=== PATIENT | female | born 1930 | race Caucasian/White ===

== ENCOUNTER → 2017-03-08 | Outpatient (REF) | payer MEDICARE ==
[2017-03-08 19:23] LABS: ALBUMIN 4.1 GM/DL (3.2-5.2); ALBUMIN/GLOBULIN RATIO 1.11 (1.00-1.93); BILIRUBIN,TOTAL 0.3 MG/DL (0.2-1.0); CALCIUM LEVEL 9.4 MG/DL (8.8-10.2); CREATININE FOR GFR 1.26 MG/DL (0.55-1.02); FREE T4 0.85 NG/DL (0.76-1.46); POTASSIUM SERUM 3.5 MEQ/L (3.5-5.1); TOTAL PROTEIN 7.8 GM/DL (6.4-8.2)
[2017-03-08 20:19] LABS: BASO # 0.1 K/mm3 (0.0-0.2); BASO % 1.3 % (0.0-1.0); EOS # 0.1 K/mm3 (0.0-0.50); EOS % 1.2 % (0.0-3.0); LARGE UNSTAINED CELL # 0.3 K/mm3 (0.0-0.4); LARGE UNSTAINED CELL % 3.5 % (0.0-4.0); LYMPH # 4.5 K/mm3 (1.5-4.5); LYMPH % 48.9 % (24.0-44.0); MEAN CORPUSCULAR HEMOGLOBIN 31.3 pg (27.0-33.0); MEAN CORPUSCULAR HGB CONC 34.1 g/dl (32.0-36.5); MEAN CORPUSCULAR VOLUME 91.6 fl (80.0-96.0); MONO # 0.5 K/mm3 (0.0-0.8); MONO % 5.6 % (0.0-5.0); NEUTROPHILS # 3.6 K/mm3 (1.8-7.7); NEUTROPHILS % 39.6 % (36.0-66.0); PLATELET COUNT, AUTOMATED 252 k/mm3 (150-450); RED CELL DISTRIBUTION WIDTH 12.8 % (11.5-14.5); WHITE BLOOD COUNT 9.1 K/mm3 (4.0-10.0)
== END ==
LOC: M SFHCADAM 14:53
PROVIDERS: ATTEND Physician Assistant Medical
DX: I10 Essential (primary) hypertension (principal); E66.01 Morbid (severe) obesity due to excess calories; R73.01 Impaired fasting glucose

== ENCOUNTER → 2017-07-28 | Outpatient (REF) | payer OTHER ==
[2017-07-28 20:40] LABS: VITAMIN B12 LEVEL 786 PG/ML (247-911)
== END ==
LOC: M LAB REF 18:49
DX: D48.5 Neoplasm of uncertain behavior of skin (principal)
CPT/HCPCS: 82607

== ENCOUNTER 2017-09-04 12:30 | Emergency (ER) | payer OTHER ==
[2017-09-04] MEDS: NAPROXEN 250 MG TAB PO (13:38)
[2017-09-04] MEDS: diazePAM 2 MG TAB PO (13:38)
== END 2017-09-04 14:19 | disposition home or self-care (01) ==
LOC: M ED 12:30
DX: M54.41 Lumbago with sciatica, right side (principal); G89.29 Other chronic pain; I10 Essential (primary) hypertension; Z87.891 Personal history of nicotine dependence; Z79.899 Other long term (current) drug therapy
CPT/HCPCS: 99284

== ENCOUNTER 2017-09-06 11:31 | Emergency (ER) | payer OTHER ==
[2017-09-06] MEDS ORDERED: ONDANSETRON 4 MG ORAL DISINTEGRATING TAB (S0181) As Ordered (12:19)
[2017-09-06] MEDS: KETOROLAC 60 MG/2 ML VIAL (J1885) IM (12:35)
[2017-09-06] MEDS: diazePAM 5 MG TAB PO (12:35)
== END 2017-09-06 14:34 | disposition home or self-care (01) ==
LOC: M ED 11:31
DX: M54.9 Dorsalgia, unspecified (principal); G89.29 Other chronic pain; I10 Essential (primary) hypertension; Z87.891 Personal history of nicotine dependence; Z79.899 Other long term (current) drug therapy; Z79.1 Long term (current) use of non-steroidal anti-inflammatories (NSAID)
CPT/HCPCS: J1885

== ENCOUNTER → 2017-11-10 | Outpatient (CLI) | payer OTHER | LOC: M WHC 09:46 | DX: M81.0 Age-related osteoporosis without current pathological fracture (principal) | CPT/HCPCS: 77080 ==

== ENCOUNTER 2019-01-11 13:16 | Emergency (ER) | payer MEDICARE, OTHER ==
[~2019-01-11] VITALS: Ht 157.5 cm; Wt 77.4 kg
[~2019-01-11 13:16] MED LIST: AMLO5TAB6 PO; DONE5TAB64 PO; HYDR12.55 PO; NAPR-837 PO; SKEL800T97 PO
[2019-01-11 13:43] LABS: ABG BASE EXCESS -3.8 (-2.0-2.0); ABG HCO3 21.5 MEQ/L (22.0-26.0); ABG O2 SATURATION 99.3 % (95.0-99.0); ABG PARTIAL PRESSURE O2 229.6 mmHg (75.0-100.0); ABG STANDARD HCO3 21.3 MEQ/L (22.0-26.0); ABG TOTAL CO2 22.7 MEQ/L (23.0-31.0); ABG pH (ARTERIAL) 7.348 UNITS (7.350-7.450)
[2019-01-11 13:57] LABS: HEMATOCRIT 35.9 % (36.0-47.0); HEMOGLOBIN 11.5 g/dl (12.0-15.5); MEAN CORPUSCULAR HEMOGLOBIN 29.9 pg (27.0-33.0); MEAN CORPUSCULAR VOLUME 93.2 fl (80.0-96.0); PLATELET COUNT, AUTOMATED 211 10^3/uL (150-450); RED BLOOD COUNT 3.85 10^6/uL (4.00-5.40); WHITE BLOOD COUNT 17.4 10^3/uL (4.0-10.0)
[2019-01-11 14:09] LABS: INR 1.19; PROTHROMBIN TIME 14.8 SECONDS (11.8-14.0)
[2019-01-11 14:10] LABS: PARTIAL THROMBOPLASTIN TIME 24.8 SECONDS (25.0-38.4)
--- NOTE | 2019-01-11 14:13 | REP ---
CT of the brain without IV contrast: Comparison is 05/29/2017. There is a new focal density measuring approximately 4 mm posteromedially in the right occipital lobe spanning images 16 - 18 as an interval change. This could represent dystrophic calcification or petechial hemorrhage. Consider follow-up MRI for further evaluation. No other hemorrhage is identified. There is no edema, mass effect or midline shift. There is mild diffuse atrophy that has slightly progressed. There is lucency within the subcortical white matter compatible with chronic microvascular ischemia, similar to the prior study. Impression: New focal density posterior medially in the right occipital lobe, calcification versus petechial hemorrhage. Consider MRI follow up for further evaluation. Mild diffuse atrophy that has slightly progressed. Chronic microvascular ischemia. Electronically Signed by Charly Stewart MD 01/11/2019 02:05 P
[2019-01-11 14:17] LABS: EOSINOPHILS 2 % (0-5); LYMPHOCYTES 34 % (16-52); MONOCYTES 4 % (0-8); NEUTROPHILS 60 % (35-75); PLATELET ESTIMATE NORMAL (NORMAL)
[2019-01-11 14:36] LABS: BLOOD UREA NITROGEN 31 MG/DL (7-18); CALCIUM LEVEL 8.8 MG/DL (8.8-10.2); CARBON DIOXIDE LEVEL 24 MEQ/L (21-32); CHLORIDE LEVEL 109 MEQ/L (98-107); CK-MB VALUE MASS 2.2 NG/ML (<3.6); CPK CREATINE PHOSPHOKINASE 145 U/L (26-192); CREATININE FOR GFR 1.15 MG/DL (0.55-1.30); GLOMERULAR FILTRATION RATE 47.6 (>32); GLUCOSE, FASTING 164 MG/DL (70-100); MAGNESIUM LEVEL 2.2 MG/DL (1.8-2.4); MB/CK RELATIVE INDEX 1.52 (< OR =4); POTASSIUM SERUM 4.2 MEQ/L (3.5-5.1); SODIUM LEVEL 142 MEQ/L (136-145); TROPONIN I < 0.02 NG/ML (< 0.10)
--- NOTE | 2019-01-11 15:01 | REP ---
CHEST, SINGLE VIEW: There is no evidence of acute infiltrate. No pleural effusion is seen. The heart is normal in size. The mediastinal silhouette is unremarkable. The visualized osseous structures are intact. There is calcification of the thoracic aorta. IMPRESSION: No acute pulmonary disease. Electronically Signed by Charly Guzmán MD 01/11/2019 05:17 P
--- NOTE | 2019-01-11 15:11 | REP ---
PELVIS AND LEFT HIP: AP view of the pelvis and AP and frogleg views of the left hip are performed. There is no evidence of acute fracture or dislocation. No intrinsic osseous pathology is seen. Impression: No fracture or dislocation. Electronically Signed by Charly Guzmán MD 01/11/2019 05:46 P
[2019-01-11] MEDS ORDERED: fentaNYL 100 MCG/2 ML INJECTION (J3010) IV ONE (15:45)
[2019-01-11 16:18] VITALS: BP 78/45
[2019-01-11] MEDS ORDERED: ONDANSETRON 4MG/2ML VIAL (J2405) As Ordered ONE (16:20)
[2019-01-11] MEDS ORDERED: ONDANSETRON 4MG/2ML VIAL (J2405) IV ONE (16:30)
[2019-01-11] MEDS ORDERED: NS 1,000 ML IV ONE (16:30)
--- NOTE | 2019-01-11 20:56 | ECGEPIP ---
[facility] - ED Test Date: 2019-01-11 Pat Name: JERZY TAFOYA Department: Room: - Gender: Female Director Of Advertising Sales: : 1930 Requested By: Cam Schroeder Order Number: [id number] Reading MD: Cam Fu Measurements Intervals [place] Rate: 69 P: 60 [place]: 148 QRS: 79 QRSD: 158 T: 89 QT: 469 QTc: 503 Interpretive Statements SINUS RHYTHM LEFT BUNDLE BRANCH BLOCK NO PRIORS FOR COMPARISON Electronically Signed on 01-11-2019 20:55:42 EDT by Cam Fu
== END 2019-01-11 16:30 | disposition short-term general hospital (02) ==
LOC: M ED 13:16
DX: I46.9 Cardiac arrest, cause unspecified (principal); S06.369A Traumatic hemorrhage of cerebrum, unspecified, with loss of consciousness of unspecified duration, initial encounter; I44.7 Left bundle-branch block, unspecified; X58.XXXA Exposure to other specified factors, initial encounter; Y92.9 Unspecified place or not applicable; Y93.9 Activity, unspecified; Y99.9 Unspecified external cause status; I10 Essential (primary) hypertension; E78.5 Hyperlipidemia, unspecified; I67.82 Cerebral ischemia; Z79.899 Other long term (current) drug therapy
CPT/HCPCS: 36415; 36600; 70450; 71045; 73502; 80048; 82550; 82553; 82803; 83605; 83735; 84443; 84484; 85025; 85610; 85730; 93005; 93041; 96374; 96375; 99285; J3010

== ENCOUNTER → 2019-03-26 | Outpatient (REF) | payer MEDICARE ==
[~2019-03-26] MED LIST changes: +ACET1TAB55 PO; +VITA200015 PO
== END ==
LOC: M LAB REF 10:11
PROVIDERS: ATTEND Physician Assistant
DX: N39.0 Urinary tract infection, site not specified (principal)

== ENCOUNTER → 2019-04-06 | Outpatient (REF) | payer MEDICARE ==
[~2019-04-06] MED LIST changes: -ACET1TAB55 PO; -VITA200015 PO
[2019-04-06 15:28] LABS: BASO # 0.1 10^3/uL (0.0-0.2); EOS # 0.2 10^3/uL (0.0-0.5); HEMATOCRIT 43.1 % (36.0-47.0); HEMOGLOBIN 13.9 g/dl (12.0-15.5); LYMPH # 2.8 10^3/uL (1.5-5.0); LYMPH % 31.8 % (24.0-44.0); MEAN CORPUSCULAR HEMOGLOBIN 29.6 pg (27.0-33.0); MEAN CORPUSCULAR HGB CONC 32.3 g/dl (32.0-36.5); MEAN CORPUSCULAR VOLUME 91.9 fl (80.0-96.0); MONO # 1.1 10^3/uL (0.0-0.8); MONO % 12.3 % (0.0-5.0); NEUTROPHILS # 4.6 10^3/uL (1.5-8.5); NEUTROPHILS % 52.6 % (36.0-66.0); PLATELET COUNT, AUTOMATED 282 10^3/uL (150-450); RED BLOOD COUNT 4.69 10^6/uL (4.00-5.40); WHITE BLOOD COUNT 8.7 10^3/uL (4.0-10.0)
[2019-04-06 16:05] LABS: ALBUMIN 3.7 GM/DL (3.2-5.2); ALT/SGPT 16 U/L (12-78); BILIRUBIN,TOTAL 0.3 MG/DL (0.2-1.0); BLOOD UREA NITROGEN 16 MG/DL (7-18); CARBON DIOXIDE LEVEL 29 MEQ/L (21-32); CHLORIDE LEVEL 106 MEQ/L (98-107); CREATININE FOR GFR 0.93 MG/DL (0.55-1.30); GLOMERULAR FILTRATION RATE > 60.0 (>32); GLUCOSE, FASTING 96 MG/DL (70-100); POTASSIUM SERUM 3.6 MEQ/L (3.5-5.1); SODIUM LEVEL 141 MEQ/L (136-145); TOTAL PROTEIN 7.8 GM/DL (6.4-8.2)
[2019-04-06 16:10] LABS: VITAMIN B12 LEVEL 427 PG/ML (247-911)
== END ==
LOC: M SFHCPLAZ 13:58
PROVIDERS: ATTEND Family Medicine
DX: R41.0 Disorientation, unspecified (principal)

== ENCOUNTER → 2019-04-13 | Outpatient (REF) | payer MEDICARE ==
[2019-04-13 11:43] LABS: APPEARANCE, URINE CLEAR (CLEAR); BACTERIA, URINE AUTO 1+ (NEGATIVE); BILIRUBIN, URINE AUTO NEGATIVE (NEGATIVE); BLOOD, URINE BLOOD NEGATIVE (NEGATIVE); COLOR, URINE YELLOW (YELLOW); GLUCOSE, URINE (UA) AUTO NEGATIVE (NEGATIVE); KETONE, URINE AUTO NEGATIVE (NEGATIVE); LEUKOCYTE ESTERASE, URINE AUTO NEGATIVE (NEGATIVE); MUCUS, URINE SMALL (NEGATIVE); NITRITE, URINE AUTO NEGATIVE (NEGATIVE); PROTEIN, URINE AUTO NEGATIVE (NEGATIVE); RBC, URINE AUTO 1 /HPF (0-3); SPECIFIC GRAVITY URINE AUTO 1.017 (1.002-1.035); SQUAMOUS EPITHELIAL CELL UR AU 0 /HPF (0-6); UROBILINOGEN, URINE AUTO 0.2 mg/dL (0.0-2.0); WBC, URINE AUTO 1 /HPF (0-3)
== END ==
LOC: M SFHCPLAZ 11:24
PROVIDERS: ATTEND Family Medicine
DX: R41.0 Disorientation, unspecified (principal)

== ENCOUNTER 2019-04-27 17:55 | Emergency (ER) | payer MEDICARE ==
[~2019-04-27] VITALS: Ht 157.5 cm; Wt 72.7 kg
[2019-04-27] MEDS ORDERED: VITA200015 PO (18:09)
[2019-04-27] MEDS ORDERED: ACET1TAB55 PO (18:09)
[2019-04-27] MEDS ORDERED: ACETAMINOPHEN 500 MG TAB PO ONE (18:45)
[2019-04-27 19:09] LABS: HEMATOCRIT 44.2 % (36.0-47.0); HEMOGLOBIN 13.5 g/dl (12.0-15.5); MEAN CORPUSCULAR HEMOGLOBIN 28.1 pg (27.0-33.0); MEAN CORPUSCULAR HGB CONC 30.5 g/dl (32.0-36.5); MEAN CORPUSCULAR VOLUME 91.9 fl (80.0-96.0); PLATELET COUNT, AUTOMATED 231 10^3/uL (150-450); RED BLOOD COUNT 4.81 10^6/uL (4.00-5.40); WHITE BLOOD COUNT 7.2 10^3/uL (4.0-10.0)
--- NOTE | 2019-04-27 19:47 | REPVR ---
PROCEDURE INFORMATION: Exam: CT Lumbar Spine Without Contrast Exam date and time: 04/27/2019 7:13 PM Clinical history: 89 years old, female; Low back pain TECHNIQUE: Imaging protocol: Computed tomography images of the lumbar spine without contrast. Radiation optimization: All CT scans at this facility use at least one of these dose optimization techniques: automated exposure control; mA and/or kV adjustment per patient size (includes targeted exams where dose is matched to clinical indication); or iterative reconstruction. COMPARISON: CT Spine, lumbar w/o contrast 09/06/2017 12:34 PM FINDINGS: Vertebrae: Mild dextroconvex curvature. Moderate to severe chronic compression fracture involving L3, stable. No acute lumbar spine fracture. Moderate prevertebral osteophytosis. There are facet joint degenerative changes. Chronic left L3 transverse process fracture. Discs/Spinal canal/Neural foramina: Central canal stenosis greatest at L3-L4, moderate. Gallbladder and bile ducts: Previous cholecystectomy. Vasculature: Vascular calcification. Ectasia of the infrarenal abdominal aorta measuring 2.6 cm. Soft tissues: Unremarkable. IMPRESSION: 1. No acute osseous abnormality. 2. Egvzubfw-wd-rodbns chronic compression fracture involving L3, stable. Electronically signed by: Mark Anthony Ventura On 04/27/2019 19:47:19 PM
[2019-04-27] MEDS ORDERED: KETOROLAC TROMETHAMINE 10 MG TAB PO ONE (20:00)
[2019-04-27 20:48] VITALS: BP 149/75
== END 2019-04-27 20:56 | disposition home or self-care (01) ==
LOC: EDBD 17:55 → M ED 17:55
DX: S32.000A Wedge compression fracture of unspecified lumbar vertebra, initial encounter for closed fracture (principal); X58.XXXA Exposure to other specified factors, initial encounter; Y92.9 Unspecified place or not applicable; Y93.9 Activity, unspecified; Y99.9 Unspecified external cause status; I10 Essential (primary) hypertension; M19.90 Unspecified osteoarthritis, unspecified site; M54.5 Low back pain; K58.9 Irritable bowel syndrome, unspecified; Z87.891 Personal history of nicotine dependence; Z79.899 Other long term (current) drug therapy

== ENCOUNTER 2019-05-16 19:00 | Inpatient (IN) | payer MEDICARE ==
[~2019-05-16] VITALS: Ht 157.5 cm; Wt 70.9 kg
[~2019-05-16 19:00] MED LIST changes: +ACET1TAB55 PO; +VITA200015 PO
[2019-05-16] MEDS ORDERED: PROPOFOL 200 MG/20 ML VIAL As Ordered ONE (19:04)
[2019-05-16] MEDS ORDERED: PROPOFOL 1,000 MG/100 ML VIAL As Ordered ONE (19:05)
[2019-05-16] MEDS ORDERED: NS 1,000 ML IV ONE (19:15)
[2019-05-16] MEDS ORDERED: ETOMIDATE INJ 20MG/10ML VIAL IV STA (19:17)
[2019-05-16] MEDS ORDERED: SUCCINYLCHOLINE INJ 200 MG/10 ML VIAL (J0330) IV STA (19:17)
[2019-05-16 19:21] LABS: HEMOGLOBIN 12.6 g/dl (12.0-15.5); MEAN CORPUSCULAR HEMOGLOBIN 28.6 pg (27.0-33.0); MEAN CORPUSCULAR HGB CONC 31.5 g/dl (32.0-36.5); MEAN CORPUSCULAR VOLUME 90.7 fl (80.0-96.0); PLATELET COUNT, AUTOMATED 245 10^3/uL (150-450); RED BLOOD COUNT 4.41 10^6/uL (4.00-5.40)
[2019-05-16 19:30] LABS: WHITE BLOOD COUNT 14.3 10^3/uL (4.0-10.0)
[2019-05-16] MEDS ORDERED: PIPERACILLIN/TAZOBACTAM SOD 3.375 GM in D5W MINI-BAG PLUS 50 ML IV ONE (19:30)
--- NOTE | 2019-05-16 19:39 | REP ---
Nickel: Chest pain. Comparison: 01/11/2019. Findings: Endotracheal tube approximately 1.7 cm above the abdullahi. Mediastinum and cardiac silhouette are within normal limits and stable. Lung lioa demonstrate diffuse chronic interstitial changes. Superimposed interstitial edema cannot be excluded. No focal consolidation. No effusion. No pneumothorax. Skeletal structures demonstrate osteopenia and degenerative changes. Impression: 1. Endotracheal tube approximately 1.7 cm above the abdullahi. 2. Cannot exclude mild interstitial edema. No focal consolidation or effusion. Electronically Signed by Herminio Gomez MD 05/16/2019 07:30 P
[2019-05-16 19:54] LABS: ATYPICAL LYMPH 13 % (0-5); EOSINOPHILS 1 % (0-3); LYMPHOCYTES 59 % (16-44); MONOCYTES 2 % (0-5); NEUTROPHILS 25 % (28-66)
[2019-05-16 19:55] LABS: PLATELET ESTIMATE NORMAL (NORMAL)
[2019-05-16 19:56] LABS: BILIRUBIN, URINE MANUAL NEGATIVE (NEGATIVE); GLUCOSE, URINE (UA) MANUAL NEGATIVE (NEGATIVE); KETONE, URINE MANUAL NEGATIVE (NEGATIVE); UROBILINOGEN, URINE MANUAL NORMAL (NORMAL)
--- NOTE | 2019-05-16 19:56 | REPVR ---
PROCEDURE INFORMATION: Exam: CT Head Without Contrast Exam date and time: 05/16/2019 7:43 PM Age: 89 years old Clinical history: Altered mental status/memory loss and coma or unconsciousness TECHNIQUE: Imaging protocol: Computed tomography of the head without contrast. Radiation optimization: All CT scans at this facility use at least one of these dose optimization techniques: automated exposure control; mA and/or kV adjustment per patient size (includes targeted exams where dose is matched to clinical indication); or iterative reconstruction. Other technique: STROKE PROTOCOL was implemented. COMPARISON: CT Head without contrast 01/11/2019 1:40 PM FINDINGS: Brain: There is volume loss. There is white matter lucency indicating extensive chronic microvascular disease. There are multiple cerebral hemorrhages. The largest is in the left temporo-parietal region and measures up to 6 cm. There are multiple additional temporal and parietal smaller hemorrhages on the left. There is surrounding edema. There is a small right medial parietal parenchymal hemorrhage. There is a small left frontotemporal subdural hematoma measuring 3 mm in thickness. Midline shift: There is 10 mm of midline shift. There is herniation of the left uncus. Ventricles: There is intraventricular hemorrhage within the right lateral ventricle. There is compression of the left lateral ventricle and trapping of the right lateral ventricle. Bones/joints: No fracture. Sinuses: Visualized sinuses are unremarkable. No fluid levels. Mastoid air cells: Visualized mastoid air cells are well aerated. Soft tissues: Unremarkable IMPRESSION: 1. Extensive left cerebral parenchymal hemorrhages the largest measuring 6 cm with surrounding edema. There is subfalcine and left uncal herniation with 10 mm of midline shift. 2. There is a small left frontotemporal subdural hematoma. 3. There is a single small right cerebral hemorrhage. ASSESSMENT: ASPECTS ([place] Stroke Program Early CT Score) 10 Electronically signed by: Mina Huitron On 05/16/2019 19:56:29 PM
[2019-05-16 19:58] LABS: ALBUMIN 3.4 GM/DL (3.2-5.2); ALT/SGPT 17 U/L (12-78); BILIRUBIN,DIRECT < 0.1 MG/DL (0.0-0.2); BILIRUBIN,TOTAL 0.4 MG/DL (0.2-1.0); BLOOD UREA NITROGEN 14 MG/DL (7-18); CALCIUM LEVEL 9.1 MG/DL (8.8-10.2); CARBON DIOXIDE LEVEL 25 MEQ/L (21-32); CHLORIDE LEVEL 108 MEQ/L (98-107); CK-MB VALUE MASS 1.8 NG/ML (<3.6); CPK CREATINE PHOSPHOKINASE 80 U/L (26-192); CREATININE FOR GFR 0.78 MG/DL (0.55-1.30); FREE T4 1.09 NG/DL (0.76-1.46); GLOMERULAR FILTRATION RATE > 60.0 (>32); GLUCOSE, FASTING 150 MG/DL (70-100); MB/CK RELATIVE INDEX 2.25 (< OR =4); NT-PRO BNP 1374 PG/ML (<450); POTASSIUM SERUM 3.1 MEQ/L (3.5-5.1); SODIUM LEVEL 142 MEQ/L (136-145); THYROID STIMULATING HORMONE 0.909 uIU/ML (0.358-3.740); TOTAL PROTEIN 6.9 GM/DL (6.4-8.2); TROPONIN I < 0.02 NG/ML (< 0.10)
[2019-05-16] MEDS ORDERED: PROPOFOL 1,000 MG in IV 1 EA IV SCH (20:00)
[2019-05-16] MEDS ORDERED: MORPHINE 10 MG/ML 1ML VIAL (J2270) IV ONE (20:15)
[2019-05-16 20:24] LABS: BACTERIA, URINE NONE SEEN; HYALINE CAST, URINE NONE SEEN /lpf (0-1); RBC, URINE NONE SEEN /hpf (0-3); SQUAMOUS EPITHELIAL CELL URINE NONE SEEN /hpf (SMALL AMT)
[2019-05-16] MEDS ORDERED: MORPHINE SULF IN 0.9% NACL 100 MG in IV 1 EA IV SCH ×2 (20:43)
[2019-05-16] MEDS ORDERED: FLEET ENEMA PR PRN (22:15)
[2019-05-16] MEDS ORDERED: SCOPOLAMINE 1MG TRANSDERMAL PATCH TOP PRN (22:15)
[2019-05-16] MEDS ORDERED: ACETAMINOPHEN 650 MG SUPP PR PRN (22:15)
[2019-05-16] MEDS ORDERED: BISACODYL 10 MG SUPP PR PRN (22:15)
--- NOTE | 2019-05-17 00:05 | ECGEPIP ---
[facility] - ED Test Date: 2019-05-16 Pat Name: JERZY TAFOYA Department: Room: - Gender: Female Chemical Research Worker: monico : 1930 Requested By: JAMAL Palacios Order Number: [id number] Reading MD: Cam Fu Measurements Intervals [place] Rate: 61 P: 34 [place]: 139 QRS: 63 QRSD: 163 T: 76 QT: 455 QTc: 462 Interpretive Statements SINUS RHYTHM WITH OCCASIONAL SUPRAVENTRICULAR PREMATURE COMPLEXES LEFT BUNDLE BRANCH BLOCK LVH WITH STRAIN PATTERN SIMILAR TO 01/11/19 Electronically Signed on 05-17-2019 0:05:00 EST by Cam Fu
[2019-05-17 00:15] VITALS: BP 151/67
[2019-05-17] MEDS: ONDANSETRON 4MG/2ML VIAL (J2405) IV PRN ×2 (00:56→18:10)
[2019-05-17] MEDS ORDERED: MORPHINE SULF IN 0.9% NACL 100 MG in IV 1 EA IV SCH ×2 (01:00)
[2019-05-17] MEDS: LORazepam 2 MG/ML VIAL (J2060) IV PRN ×4 (01:43→18:10)
--- NOTE | 2019-05-17 01:47 | HPEPDOC ---
General Date of Admission 05/16/19 Date of Service: May 16, 2019 Primary Care Physician: KRYSTLE TABARES PA-C Attending Physician: SUKHDEEP ANDREWS DO Chief Complaint The patient is a 89-year-old female admitted with a reason for visit of Unresponsive. History of Present Illness This is a 89 yo F with hx of intraparenchymal bleed in 12/2018 s/p syncope, cause unclear-from cardiac arrest requiring CPR vs hypotension. Information is obtained from chart and her 2 brothers in the room. She was brought in via EMS after noted to be minimally responsive at home. Brothers state she had been complaining of headache leading up to today, and blurred vision starting last night. No other recent changes in meds or signs or symptoms. Brother checked in on her earlier today and found her in bed confused and nonverbal. At that point, was able to raise her arms and hold the brother, but unable to answer. In ambulance, she was bagged and then intubated upon arrival. CT imaging noted significant hemorrhage with uncal herniation. Results were discussed with her family, including over the phone by the ER with pt's sister, who is pt's HCP. They relayed that Ms. 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 ANISHA signed, was extubated and being admitted for supportive care. Home Medications Scheduled Cholecalciferol (Vitamin D3) (Vitamin D3) 2,000 Unit Tablet, 2,000 UNITS PO DAILY, (Reported) Scheduled PRN Acetaminophen (Acetaminophen) 325 Mg Tablet, 650 MG PO Q6HP PRN for PAIN, (Reported) Allergies Coded Allergies: No Known Allergies (Verified , 02/19/09) Past Medical History Medical History OA HTN-meds stopped due to hypotension chronic venous insufficiency syncope 12/2018 with intraparenchymal hemorrage and CPR IBS recurrent UTI compression fractures dementia Surgical History vaginal hysterectomy ankle cyst repair ccy knee arthroscopy rt breast biopsy Family History dad passed at 76 from CVA mom passed at 89-colon cancer, CHF Social History lived alone at home, no illicit substances A-FIB/CHADSVASC A-FIB History Current/History of A-Fib/PAF?: No Current PO Anticoag Therapy: No Review of Systems Other systems unable to obtain due to pt sedated, MOTORCOACH OPERATOR. Physical Examination Other physical findings MOTORCOACH OPERATOR status General exam: NAD, resting comfortably, sedated, pale ill-appearing HEENT: normocephalic without visible lesions Respiratory: not intubated Skin: pale without visible rash or lesion Msk: flaccid on sedation Neuro: sedated, nonverbal Vital Signs Vital Signs Date Time Temp Pulse Resp B/P (MAP) Pulse Ox O2 Delivery O2 Flow Rate FiO2 05/16/19 22:01 49 16 138/63 (88) 81 Room Air 05/16/19 19:34 60 05/16/19 19:05 97.0 Laboratory Data Labs 24H Laboratory Tests 2 05/16/19 19:06: Lymphocytes # (Auto) , Nucleated Red Blood Cells % (auto) 0.0, Neutrophils 25L, Lymphocytes (Manual) 59H, Monocytes (Manual) 2, Eosinophils (Manual) 1, Atypical Lymphocytes 13H, Platelet Estimate NORMAL, Anion Gap 9, Glomerular Filtration Rate > 60.0, Calcium Level 9.1, Total Bilirubin 0.4, Direct Bilirubin < 0.1, Aspartate Amino Transf (AST/SGOT) 14, Alanine Aminotransferase (ALT/SGPT) 17, Alkaline Phosphatase 77, Total Creatine Kinase 80, Creatine Kinase MB 1.8, Creatine Kinase MB Relative Index 2.25, Troponin I < 0.02, BK-[place]-P-Type Natriuretic Peptide 1374H, Total Protein 6.9, Albumin 3.4, Albumin/Globulin Ratio 0.97L, Thyroid Stimulating Hormone (TSH) 0.909, Free Thyroxine 1.09 05/16/19 19:15: Lactic Acid Level 2.0 05/16/19 19:22: Urine Color (ADRIANNA) YELLOW, Urine Appearance (ADRIANNA) CLEAR, Urine pH (ADRIANNA) 6.0, Urine Specific [place] (ADRIANNA) 1.015, Urine Protein TRACEH, Bedside Urine Glucose (UA) NEGATIVE, Bedside Urine Ketones (LAB) NEGATIVE, Bedside Urine Blood TRACEH, Bedside Urine Nitrite (LAB) NEGATIVE, Bedside Urine Bilirubin (LAB) NEGATIVE, Bedside Urine Urobilinogen (LAB) NORMAL, Bedside Urine Leukocyte Esterase (L NEGATIVE, Urine Sediment Examination PERFORMED, Urine RBC NONE SEEN, Urine WBC NONE SEEN, Urine Squamous Epithelial Cells NONE SEEN, Urine Bacteria NONE SEEN, Urine Hyaline Casts NONE SEEN 05/16/19 19:39: POC pH (Misc Panel) 7.381, POC Base Excess (Misc Panel) 0.0, POC Saturated Percent O2 (Misc) 93L, POC pO2 (Misc Panel) 67.0L, POC pCO2 (Misc Panel) 41.9, POC HCO3 (Misc Panel) 24.8, POC Total CO2 (Misc Panel) 26.0 CBC/BMP Laboratory Tests 05/16/19 19:06 Microbiology Microbiology 05/16/19 Blood Culture, Received Pending 05/16/19 Blood Culture, Received Pending Assessment/Plan Severe intracerebral hemorrhage and uncal herniation-results discussed with family, including patient's HCP (sister) by ER via phone. Her 2 brothers and 1 sister relayed that she would not want to be intubated or have CPR or any further interventions. Was extubated therafter. MOLST in chart updated by ER. Patient is DNR/DNI and comfort measures only, will admit with hospice consult in place. All questions answered with family. Plan / VTE VTE Prophylaxis Ordered?: No VTE Exclusion Pharmacological: Patient/Family Refusal GME ATTESTATION GME ATTESTATION My faculty preceptor for this patient encounter was physically present during the encounter and was fully available. All aspects of the patient interview, examination, medical decision making process, and medical care plan development were reviewed and approved by the faculty preceptor. The faculty preceptor is aware and concurs with the plan as stated in the body of this note and will attest to such by his/her cosignature. ATTENDING NOTE I saw the pt and agree with resident's findings and plan of treatment KYREE HAQUE DO May 16, 2019 22:26 SUKHDEEP ANDREWS DO May 17, 2019 06:31
[2019-05-17] MEDS: ATROPINE SULFATE 1% OP SOLN 2 ML BTL SL PRN ×3 (04:28→16:11)
[2019-05-17] MEDS ORDERED: SUCCINYLCHOLINE 100 MG/5 ML SYRINGE (J0330) ONE (08:57)
[2019-05-17] MEDS ORDERED: ETOMIDATE INJ 20MG/10ML VIAL ONE (08:57)
--- NOTE | 2019-05-17 10:54 | IPNPDOC ---
Subjective Date Seen The patient was seen on 05/17/19. Subjective Chief Complaint/HPI Pt unarousable. Son at bedside, asleep. General: Reports: ROS Unobtainable Objective Physical Examination General Exam: Positive: No Acute Distress; Negative: Alert Chest Exam: Positive: Rhonchi; Negative: Clear to auscultation, Normal air movement Heart Exam: Positive: Rate Normal Psych Exam: Negative: Mental status NL Assessment /Plan Problems (1) Comfort measures only status Status: Acute Problem Specific Plan: Monitor Clinically Problem Text: Morphine, scopalamine, hycosamine, ativan available for use for comfort. (2) Hemorrhagic cerebrovascular accident (CVA) Status: Acute Plan/VTE VTE Prophylaxis Ordered?: No (CARE MANAGEMENT SPECIALIST) VTE Exclusion Pharmacological: Patient/Family Refusal Plan Family Medicine Attending Note: I saw and examined Ms. Ahuja, discussed with [place]. Agree with her note as documented. There was some family at the bedside when I visited today. They report she is comfortable. They're concerned because she has a reported intolerance to opioids including morphine. She tends to vomit if she gets it. Right now she is comfortable with just when necessary Ativan. We'll continue with that for now. May try co-administering a lower dose of morphine with ondansetron if this is needed down the road. (insole filler) VS, I&O, 24H, [place] Vital Signs/I&O Vital Signs Date Time Temp Pulse Resp B/P (MAP) Pulse Ox O2 Delivery O2 Flow Rate FiO2 05/17/19 00:15 56 18 151/67 (95) 82 Room Air 05/16/19 19:34 60 05/16/19 19:05 97.0 I&O- Last 24 Hours up to 6 AM 05/17/19 06:00 Intake Total 0 ml Output Total 675 ml Balance -675 ml Laboratory Data 24H LABS Laboratory Tests 2 05/16/19 19:06: Lymphocytes # (Auto) , Nucleated Red Blood Cells % (auto) 0.0, Neutrophils 25L, Lymphocytes (Manual) 59H, Monocytes (Manual) 2, Eosinophils (Manual) 1, Atypical Lymphocytes 13H, Platelet Estimate NORMAL, Anion Gap 9, Glomerular Filtration Rate > 60.0, Calcium Level 9.1, Total Bilirubin 0.4, Direct Bilirubin < 0.1, Aspartate Amino Transf (AST/SGOT) 14, Alanine Aminotransferase (ALT/SGPT) 17, Alkaline Phosphatase 77, Total Creatine Kinase 80, Creatine Kinase MB 1.8, Creatine Kinase MB Relative Index 2.25, Troponin I < 0.02, PU-Ahq-T-Type Natriuretic Peptide 1374H, Total Protein 6.9, Albumin 3.4, Albumin/Globulin Ratio 0.97L, Thyroid Stimulating Hormone (TSH) 0.909, Free Thyroxine 1.09 05/16/19 19:15: Lactic Acid Level 2.0 05/16/19 19:22: Urine Color (ADRIANNA) YELLOW, Urine Appearance (ADRIANNA) CLEAR, Urine pH (ADRIANNA) 6.0, Urine Specific [place] (ADRIANNA) 1.015, Urine Protein TRACEH, Bedside Urine Glucose (UA) NEGATIVE, Bedside Urine Ketones (LAB) NEGATIVE, Bedside Urine Blood TRACEH, Bedside Urine Nitrite (LAB) NEGATIVE, Bedside Urine Bilirubin (LAB) NEGATIVE, Bedside Urine Urobilinogen (LAB) NORMAL, Bedside Urine Leukocyte Esterase (L NEGATIVE, Urine Sediment Examination PERFORMED, Urine RBC NONE SEEN, Urine WBC NONE SEEN, Urine Squamous Epithelial Cells NONE SEEN, Urine Bacteria NONE SEEN, Urine Hyaline Casts NONE SEEN 05/16/19 19:39: POC pH (Misc Panel) 7.381, POC Base Excess (Misc Panel) 0.0, POC Saturated Percent O2 (Misc) 93L, POC pO2 (Misc Panel) 67.0L, POC pCO2 (Misc Panel) 41.9, POC HCO3 (Misc Panel) 24.8, POC Total CO2 (Misc Panel) 26.0 CBC/BMP Laboratory Tests 05/16/19 19:06 Microbiology Microbiology 05/16/19 Blood Culture, Received Pending 05/16/19 Blood Culture, Received Pending KRYSTLE TABARES PA-C May 17, 2019 10:54 am Tree Lemon MD May 17, 2019 7:46 pm
[2019-05-17] MEDS: MORPHINE 2 MG/ML 1ML VIAL (J2270) IV PRN ×2 (18:11→20:43)
--- NOTE | 2019-05-18 17:39 | DS.PDOC ---
Discharge Summary General Date of Admission May 16, 2019 at 22:59 Date of Discharge 05/17/19 Primary Care Physician: Boaz Sams MD Attending Physician: Tree Lemon MD Discharge Summary ADMITTING DIAGNOSES: 1. Severe intracerebral hemorrhage with uncal herniation. DISCHARGE DIAGNOSIS/CAUSE OF : 1. Severe intracerebral hemorrhage with uncal herniation. PROCEDURES PERFORMED DURING STAY: None. ADMISSION HISTORY: Ms. Ahuja was brought in via EMS after noted to be minimally responsive at home. Please see the admission history and physical for the remaining details. HOSPITAL COURSE: Ms. Ahuja was brought in for evaluation and it was quickly determined that she had had any large intracerebral hemorrhage with uncal herniation. This was discussed frankly with her family and they decided to have her admitted on palliative care/comfort measures only. She remained comfortable through the next day and ultimately did . DISCHARGE CONDITION: Morbid. LABORATORY DATA: Please see below. IMAGING: Chest x-ray, head CT. Vital Signs/I&Os Vital Signs Date Time Temp Pulse Resp B/P (MAP) Pulse Ox O2 Delivery O2 Flow Rate FiO2 05/17/19 20:43 40 Room Air 05/17/19 00:15 56 151/67 (95) 82 05/16/19 19:34 60 05/16/19 19:05 97.0 I&O- Last 24 Hours up to 6 AM 05/18/19 06:00 Intake Total 0 ml Output Total 0 ml Balance 0 ml Microbiology Microbiology 05/16/19 Blood Culture - Preliminary, Resulted No growth after 24 hours . All specim... 05/16/19 Blood Culture - Preliminary, Resulted No growth after 24 hours . All specim... Discharge Medications Scheduled Cholecalciferol (Vitamin D3) (Vitamin D3) 2,000 Unit Tablet, 2,000 UNITS PO DAILY, (Reported) Scheduled PRN Acetaminophen (Acetaminophen) 325 Mg Tablet, 650 MG PO Q6HP PRN for PAIN, (Reported) Allergies Coded Allergies: No Known Allergies (Verified , 02/19/09) Tree Lemon MD May 18, 2019 17:39
== END 2019-05-17 23:51 | disposition expired | DRG 64 ==
LOC: M ED 19:00 → M ED INP 22:59 → M MSPAV 05-17 00:27
PROVIDERS: ADMIT Internal Medicine; ATTEND Family Medicine
PROC: 5A1935Z Respiratory Ventilation, Less than 24 Consecutive Hours (ICD-10-PCS; principal; 2019-05-16)
DX: I61.9 Nontraumatic intracerebral hemorrhage, unspecified (principal); G93.5 Compression of brain; J96.90 Respiratory failure, unspecified, unspecified whether with hypoxia or hypercapnia; Z66 Do not resuscitate; Z51.5 Encounter for palliative care; R40.20 Unspecified coma; M19.90 Unspecified osteoarthritis, unspecified site; I10 Essential (primary) hypertension; F03.90 Unspecified dementia, unspecified severity, without behavioral disturbance, psychotic disturbance, mood disturbance, and anxiety